=== PATIENT | male | born 1970 | race Caucasian/White ===

== ENCOUNTER 2021-02-03 03:27 | Inpatient (IN) | payer OTHER ==
[~2021-02-03] VITALS: Ht 180.3 cm; Wt 111.6 kg
--- NOTE | 2021-02-03 03:28 | NUR ---
TO ROOM VIA W/C. AT SIDE. TRIAGED AT BEDSIDE.
[2021-02-03] MEDS ORDERED: METFORMIN HCL500 M2 PO (03:47)
[2021-02-03 04:17] LABS: HEMATOCRIT 39.5 % (39.0-50.0); IMMATURE GRANULOCYTES 0.2 % (0.0-5.0); MEAN CELL VOLUME 89.2 fL CALC (80.0-100.0); MEAN CORPUSCULAR HGB 29.3 pG CALC (26.0-32.0); MEAN CORPUSCULAR HGB CONC 32.9 g/dL CAL (32.0-36.0); NEUT# 2.44 thou/uL (1.82-7.42); RED BLOOD COUNT 4.43 mill/uL (4.70-6.10); RED CELL DISTRI WIDTH 13.1 % (11.5-15.5)
[2021-02-03 04:20] LABS: URINE BILIRUBIN - DIPSTICK NEGATIVE (NEGATIVE); URINE BLOOD DIPSTICK TRACE-INTACT (NEGATIVE); URINE COLOR YELLOW; URINE GLUCOSE - DIPSTICK NEGATIVE (NEGATIVE); URINE KETONE NEGATIVE (NEGATIVE); URINE LEUK ESTERASE NEGATIVE (NEGATIVE); URINE NITRITE - DIPSTICK NEGATIVE (Negative); URINE PH 5.5 (4.5-8.0); URINE PROTEIN - DIPSTICK 30 mg/dL (NEG-TRACE); URINE SPECIFIC GRAVITY 1.025; URINE UROBILINOGEN - DIPSTICK 0.2 E.U./dL (0.2)
[2021-02-03 04:29] LABS: ALBUMIN 4.1 g/dL (3.2-5.0); ALKALINE PHOSPHATASE 37 u/l (38-126); ANION GAP 15 (6-22 (CALC)); BILIRUBIN, TOTAL 0.4 mg/dL (0.0-1.4); BUN 15 mg/dL (9-20); BUN/CREATININE RATIO 18 (12-20 (CALC)); CARBON DIOXIDE 29 mmol/l (22-30); CHLORIDE 97 mmol/l (95-108); CPK 105 u/l (52-200); CREATININE 0.8 mg/dL (0.7-1.3); GFR > 60 ML/MIN (>=60 (CALC)); GFR FOR AFR.AMER. > 60 ML/MIN (>=60 (CALC)); MAGNESIUM 1.8 mg/dL (1.6-2.3); POTASSIUM 3.7 mmol/l (3.5-5.1); SGOT/AST 42 u/l (17-59); SODIUM 138 mmol/l (137-146); TOTAL PROTEIN 7.4 g/dL (6.3-8.2)
--- NOTE | 2021-02-03 04:30 | NUR ---
RESTING QUIETLY. NAD.
[2021-02-03 04:34] LABS: D-DIMER 0.57 mg/L (0.19-0.60)
[2021-02-03 04:37] LABS: ACT PARTIAL THROMBO TIME 27.6 SECONDS (20.0-32.5); PROTHROMBIN TIME 10.1 SECONDS (9.0-12.5)
[2021-02-03 04:41] LABS: MYOGLOBIN 57 ng/mL (0 - 121)
--- NOTE | 2021-02-03 05:30 | NUR ---
NO CHANGE IN EXAM.
--- NOTE | 2021-02-03 06:58 | NUR ---
Admission Note Report Given to: MADAI, RN Transported by: Y Wheelchair Stretcher Transported with: Y Nurse Transporter Y Patent IV Y O2 Y Cane Flume Watcher Location: ICU Y MS2
[2021-02-03 08:40] VITALS: BP 98/69
--- NOTE | 2021-02-03 09:42 | NUR ---
REPORT RECEIVED FROM THOMPSON IN ED, PT ARRIVED ON UNIT @ 0740 AND SETTLED IN ROOM, ALERT AND ORIENTED X 3 , ORIENTED TO ROOM AND CALL HAIDER, TELE MONITOR IN PLACE, DENIES PAIN, TOOK OFF O2 AND STATES HE WILL APPLY NEEDED, AMBULATORY WITH STEADY GAIT, CALL HAIDER IN REACH AND BED LOCKED IN LOWEST POSITION, WILL CONTINUE TO MONITOR.
[2021-02-03 09:58] LABS: C-REACTIVE PROTEIN 3.2 mg/dL (0-0.9)
[2021-02-03 11:12] VITALS: BP 109/72
--- NOTE | 2021-02-03 12:25 | NUR ---
REPORT RECEIVED FROM JESSICA STOUT
--- NOTE | 2021-02-03 13:55 | NUR ---
RT AT BEDSIDE COMPLETING OXYGEN QUALIFICATION TEST.
--- NOTE | 2021-02-03 15:04 | NUR ---
PT TRANSPORTED TO [facility] IN STABLE CONDITION VIA WHEELCHAIR ACCOMPANIED BY JOHN RUSSELL.
--- NOTE | 2021-02-03 15:25 | NUR ---
PT RETURNED TO MED/SURG ROOM 288 IN STABLE CONDITION VIA WHEELCHAIR ACCOMPANIED BY JOHN RUSSELL.
--- NOTE | 2021-02-03 15:50 | NUR ---
PT RESTING IN SEMI FOWLERS POSITION;RESPIRATIONS EVEN AND UNLABORED ON O2 @ 2L VIA NC;PT DENIES ANY CURRENT PAIN OR DISCOMFORTS;TELE MONITORING IN PLACE;IV SITE PATENT AND ABX STARTED AT THIS TIME;PT ENCOURAGED TO CALL FOR ASSISTANCE IF NEEDED;CALL LIGHT IN REACH;WILL CONTINUE TO MONITOR
[2021-02-03 16:00] VITALS: BP 93/61
[2021-02-03 19:49] VITALS: BP 102/65
--- NOTE | 2021-02-03 20:14 | NUR ---
PHYSICAL ASSESMENT COMPLETE. PT CURRENTLY DENIES PAIN OR DISCOMFORT. SCHEDULED MEDICATIONS AND PRN MEDICATION ADMINISTERED, SEE E-MAR. PT DENIES ANY NEEDS AT THIS TIME. PLAN OF CARE REVIEWED, PT DENIES QUESTIONS, VERBALIZES UNDERSTANDING. ITEMS WITHIN REACH, BED LOCKED IN LOW POSITION W/ BEDRAILS UP X2. CALL HAIDER WITHIN REACH, AGREES TO CALL PRN.
[2021-02-04] VITALS: BP 116/68
--- NOTE | 2021-02-04 01:48 | NUR ---
PT LAYING IN BED WITH EYES CLOSED, APPEARS TO BE SLEEPING, APPEARS COMFORTABLE AND IN NO DISTRESS. RESPIRATIONS REGULAR AND UNLABORED WITH UNPRODUCTIVE COUGH. ITEMS REMAIN WITHIN REACH, CALL HAIDER REMAINS WITHIN REACH. BED REMAINS LOCKED AND IN LOW POSITION WITH BEDRAILS UP X2. WILL CONTINUE TO MONITOR.
--- NOTE | 2021-02-04 04:15 | NUR ---
PT RESTING IN BED, NO SIGNS OF DISTRESS NOTED, RESP EVEN AND UNLABORED ON 2 LITERS OF 02 PT VOICES NO NEEDS OR COMPLAINTS AT THIS TIME. CALL LIGHT IN REACH, CONTINUE TO MONITOR.
[2021-02-04 04:48] LABS: HEMATOCRIT 39.4 % (39.0-50.0); HEMOGLOBIN 12.7 g/dl (14.0-18.0); IMMATURE GRANULOCYTES 0.6 % (0.0-5.0); MEAN CELL VOLUME 90.4 fL CALC (80.0-100.0); MEAN CORPUSCULAR HGB 29.1 pG CALC (26.0-32.0); MEAN CORPUSCULAR HGB CONC 32.2 g/dL CAL (32.0-36.0); NEUT# 3.47 thou/uL (1.82-7.42); RED BLOOD COUNT 4.36 mill/uL (4.70-6.10); RED CELL DISTRI WIDTH 13.3 % (11.5-15.5)
[2021-02-04 05:06] LABS: ALBUMIN 3.4 g/dL (3.2-5.0); ALKALINE PHOSPHATASE 37 u/l (38-126); ANION GAP 13 (6-22 (CALC)); BUN 19 mg/dL (9-20); BUN/CREATININE RATIO 31 (12-20 (CALC)); CARBON DIOXIDE 25 mmol/l (22-30); CHLORIDE 104 mmol/l (95-108); CREATININE 0.6 mg/dL (0.7-1.3); GFR > 60 ML/MIN (>=60 (CALC)); GFR FOR AFR.AMER. > 60 ML/MIN (>=60 (CALC)); POTASSIUM 4.2 mmol/l (3.5-5.1); SGOT/AST 32 u/l (17-59); SODIUM 138 mmol/l (137-146); TOTAL PROTEIN 6.5 g/dL (6.3-8.2)
[2021-02-04 05:08] LABS: BILIRUBIN, TOTAL 0.2 mg/dL (0.0-1.4)
[2021-02-04 05:09] VITALS: BP 109/74
--- NOTE | 2021-02-04 06:55 | NUR ---
REPORT FROM ANNA LOPEZ. ASSUMED PT CARE.
[2021-02-04 08:20] VITALS: BP 130/88
--- NOTE | 2021-02-04 08:26 | NUR ---
PT SITTING UP AT BEDSIDE EATING BREAKFAST. NO APPARENT DISTRESS OR SOB NOTED. ALERT AND ORIENTED X4. SAT 93% ON RA. PT SET UP FOR SHOWER AT THIS TIME. MEDICATED ORDERED. DISCUSSED POC. PT VERBALIZED UNDERSTANDING. INSTRUCTED PT TO CALL FOR ASSISTANCE NEEDED.
[2021-02-04 10:30] VITALS: BP 120/74
--- NOTE | 2021-02-04 10:50 | NUR ---
PHYSICIAN AT BEDSIDE TO DISCUSS POC.
--- NOTE | 2021-02-04 14:02 | NUR ---
PT RESTING IN BED. NO APPARENT DISTRESS NOTED. RESPIRATIONS EVEN AND UNLABORED, 02 SAT 93% ON RA. PT DENIES ANY CURRENT WANTS OR NEEDS. CALL LIGHT WITHIN REACH. WILL CONTINUE TO MONITOR.
[2021-02-04 15:13] VITALS: BP 123/75
--- NOTE | 2021-02-04 18:35 | NUR ---
PT RESTING IN BED. NO APPARENT DISTRESS NOTED. RESPIRATIONS EVEN AND UNLABORED, 02 SAT 95% ON RA. PT DENIES ANY CURRENT WANTS OR NEEDS. CALL LIGHT WITHIN REACH. WILL CONTINUE TO MONITOR.
[2021-02-04 19:00] VITALS: BP 120/68
--- NOTE | 2021-02-04 21:23 | NUR ---
PT JUST RETURNING TO THE BED FROM THE RESTROOM, DENIED FEELING SOB, BUT STATED THAT IT MAKES HIM HAVE COUGHING SPELLS WHEN HE AMBULATES. OXYGEN NC IS ON @2L. OXYGEN SAT LEVEL IS 90% ON 2L, INCREASED OXYGEN TO 3L, WILL CONTINUE TO MONITOR AND ASSESS FOR OXYGEN NEED TO BE TITRATED DOWN. SNACK PROVIDED AND PT MEDICATED AT THIS TIME. ASSESSMENT ALSO COMPLETED. CALL LIGHT W/IN REACH AND PT ENCOURAGED TO CALL NEEDS ARISE.
[2021-02-05 00:05] VITALS: BP 130/78
--- NOTE | 2021-02-05 00:22 | NUR ---
PT MEDICATED ORDERS PROVIDE. DENIES PAIN, SOB OR ANY OTHER DISTRESSES. ENCOURAGED TO CALL IF NEEDS ARISE.
[2021-02-05 04:13] VITALS: BP 122/79
[2021-02-05 05:44] LABS: HEMATOCRIT 37.1 % (39.0-50.0); HEMOGLOBIN 12.2 g/dl (14.0-18.0); IMMATURE GRANULOCYTES 0.3 % (0.0-5.0); MEAN CELL VOLUME 90.7 fL CALC (80.0-100.0); MEAN CORPUSCULAR HGB 29.8 pG CALC (26.0-32.0); MEAN CORPUSCULAR HGB CONC 32.9 g/dL CAL (32.0-36.0); NEUT# 1.82 thou/uL (1.82-7.42); RED BLOOD COUNT 4.09 mill/uL (4.70-6.10); RED CELL DISTRI WIDTH 13.5 % (11.5-15.5)
[2021-02-05 05:55] LABS: ALBUMIN 3.4 g/dL (3.2-5.0); ALKALINE PHOSPHATASE 38 u/l (38-126); ANION GAP 11 (6-22 (CALC)); BUN 18 mg/dL (9-20); BUN/CREATININE RATIO 26 (12-20 (CALC)); C-REACTIVE PROTEIN 3.2 mg/dL (0-0.9); CARBON DIOXIDE 29 mmol/l (22-30); CHLORIDE 104 mmol/l (95-108); CREATININE 0.7 mg/dL (0.7-1.3); GFR > 60 ML/MIN (>=60 (CALC)); GFR FOR AFR.AMER. > 60 ML/MIN (>=60 (CALC)); POTASSIUM 4.1 mmol/l (3.5-5.1); SGOT/AST 33 u/l (17-59); SODIUM 140 mmol/l (137-146); TOTAL PROTEIN 6.5 g/dL (6.3-8.2)
[2021-02-05 06:03] LABS: BILIRUBIN, TOTAL 0.1 mg/dL (0.0-1.4)
--- NOTE | 2021-02-05 06:07 | NUR ---
ADMINISTERED PATIENTS SCHEDULED MEDICATION. DENIES HAVING ANY PAIN. CALL LIGHT WITHIN REACH. INSTRUCTED TO CALL IF ASSISTANCE NEEDED.
[2021-02-05 07:47] VITALS: BP 119/48
--- NOTE | 2021-02-05 09:00 | NUR ---
PT ALERT, ORIENTED X 3. LUNGS CLEAR, RA PRN. PT WITH OCCASIONAL NONPRODUCTIVE COUGH. PT HOPEFUL FOR DISCHARGE TODAY.
[2021-02-05] MEDS ORDERED: DECADRON6 MG PO (11:35)
[2021-02-05] MEDS ORDERED: ZPAK PO (11:36)
[2021-02-05 12:14] VITALS: BP 117/70
--- NOTE | 2021-02-05 13:46 | NUR ---
PT HAS BEEN DISCHARGED TO HOME. PT VERBALIZED UNDERSTANDING OF DC INSTRUCTIONS, TAKEN BY WHEELCHAIR TO VEHICLE. PT LEAVES [facility] IN STABLE CONDITION.
== END 2021-02-05 13:40 | disposition home or self-care (01) | DRG 177 ==
LOC: ED 03:27 → ED-I 06:20 → ED 06:31 → MS2 06:32
PROVIDERS: Family Medicine; Nurse Practitioner; ADMIT Internal Medicine; ATTEND Internal Medicine
PROC: XW033E5 Introduction of Remdesivir Anti-infective into Peripheral Vein, Percutaneous Approach, New Technology Group 5 (ICD-10-PCS; principal; 2021-02-03)
DX: U07.1 COVID-19 (principal); J12.82 Pneumonia due to coronavirus disease 2019; E11.9 Type 2 diabetes mellitus without complications; Z79.84 Long term (current) use of oral hypoglycemic drugs
CPT/HCPCS: J1650; Q9967